=== PATIENT | male | born 1990 | race Two or more races ===

== ENCOUNTER 2025-03-28 03:41 | Emergency (ER) | payer MEDICAID, OTHER ==
[~2025-03-28] VITALS: Ht 180.3 cm; Wt 117.0 kg
[2025-03-28] MEDS ORDERED: LORA-622 PO (04:25)
[2025-03-28] MEDS ORDERED: PRED20TA2 PO (04:25)
--- NOTE | 2025-03-28 04:25 | ED.PDOC ---
History of Present Illness(SKN HPI Comments 35 year old male presents to ER with complaints of rash x 3 days. Patient states he developed a fine painful rash diffuse to body 3 days ago. Denies use of medications for current symptoms and presents to ER ambulatory on arrival, with steady gait, in no distress. Denies fever, body aches, chills, known allergies, use of new soaps/detergents/lotions, joint pain, penile discharge/exposure to STD or any further symptoms/complaints Chief Complaint: Rash Time Seen by MD: 03:48 Primary Care Provider: UNKNOWN History of Present Illness: Nurses Notes, Medications, Allergies Allergies: Coded Allergies: NO KNOWN ALLERGIES (Unverified , 03/28/25) Home Meds Active Scripts Loratadine (Claritin) 10 Mg Tab, 1 TAB PO DAILY PRN, #30 TAB 0 Refills Prov:RAFAEL DUNN 03/28/25 Prednisone (Prednisone) 20 Mg Tab, 20 MG PO BID for 5 Days, #10 TAB 0 Refills Prov:RAFAEL DUNN 03/28/25 Information Source: Patient Mode of Arrival: Ambulatory Past Medical History PAST MEDICAL HISTORY: Denies Surgical History: Denies all surgeries Family History Family History: Unknown Social History Smoker: Non-Smoker Alcohol: Denies ETOH Use Drugs: Denies Drug Use Lives In: Home Constitutional: denies: chills, diaphoresis, fatigue, fever, malaise, sweats, weakness, others EENTM: denies: blurred vision, double vision, ear bleeding, ear discharge, ear drainage, ear pain, ear ringing, eye pain, eye redness, hearing loss, mouth pain, mouth swelling, nasal discharge, nose bleeding, nose congestion, nose pain, photophobia, tearing, throat pain, throat swelling, voice changes, others Respiratory: denies: cough, hemoptysis, orthopnea, SOB at rest, shortness of breath, SOB with excertion, stridor, wheezing, others Cardiovascular: denies: chest pain, dizzy spells, diaphoresis, Dyspnea on exertion, edema, irregular heart beat, left arm pain, lightheadedness, palpitations, PND, syncope, others Gastrointestinal: denies: abdomen distended, abdominal pain, blood streaked bowels, constipated, diarrhea, dysphagia, difficulty swallowing, hematemesis, melena, nausea, poor appetite, poor fluid intake, rectal bleeding, rectal pain, vomiting, others Genitourinary: denies: burning, dysuria, flank pain, frequency, hematuria, i ncontinence, penile discharge, penile sore, pain, testicle pain, testicle swelling, urgency, others Neurological: denies: dizziness, fainting, headache, left sided numbness, left sided weakness, numbness, paresthesia, pre-existing deficit, right sided numbness, right sided weakness, seizure, speech problems, tingling, tremors, weakness, others Musculoskeletal: denies: back pain, gout, joint pain, joint swelling, muscle pain, muscle stiffness, neck pain, others Integumetry: reports: others (As stated in HPI) Allergic/Immunocompromised: reports: others (As stated in HPI) Hematologic/Lymphatic: denies: anemia, blood clots, easy bleeding, easy bruising, swollen glands, others Endocrine: denies: excessive hunger, excessive sweating, excessive thirst, excessive urination, flushing, intolerance to cold, intolerance to heat, unexplained weight gain, unexplained weight loss, others Psychiatric: denies: anxiety, bipolar disorder, depression, hopeless, panic disorder, schizophrenia, sleepless, suicidal, others Physical Exam General Appearance: No Apparent Distress, Obese HEENT: Normal ENT Inspection, PERRL/EOMI, Pharynx Normal, TMs Normal Neck: Full Range of Motion, Non-Tender, Normal Respiratory: Chest Non-Tender, Lungs Clear, No Accessory Muscle Use, No Respiratory Distress, Normal Breath Sounds Cardiovascular: No Murmur, No Gallop, Regular Rate/Rhythm Breast Exam: Deferred Gastrointestinal: NOT DONE Genitalia: Deferred Pelvic: Deferred Rectal: Deferred Extremities: Normal capillary refill, Normal range of motion Neurologic: Alert, No Motor Deficits, Normal Affect, Normal Mood, No Sensory Deficits Cerebellar Function: Normal Reflexes: Normal Skin: Dry, Normal Color (Fine, flesh-colored papular rash to bilateral arms and upper back noted without erythema/warmth or signs of infection appreciated), Warm Peripheral Pulses: 2+ Radial (R), 2+ Radial (L), 2+ Brachial (R), 2+ Brachial (L) Lymphatic: No Adenopathy Was a procedure done? Was a procedure done?: No Sedation Sedation?: No Differential Diagnosis (INTG) Differential Diagnosis: Drug Reaction, Scabies, Viral exanthema Differential Diagnosis: Cellulitis X-Ray, Labs, Meds, VS Vital Signs Date Time Temp Pulse Resp B/P (MAP) Pulse Ox O2 Delivery O2 Flow Rate FiO2 03/28/25 03:44 97.4 75 18 135/89 97 97.4 Solu-Medrol 125 mg IM ordered Advised to follow up with PCP in 1-2 days Patient verbalized understanding and agreeable with current plan of care Advised to return to ER immediately if symptoms worsen Time of 1ST Reevaluation: 04:04 Reevaluation 1ST: N/A Patient Education/Counseling: Diagnosis, Treatment, Prognosis, Need For Follow Up Family Education/Counseling: No Family Present SEPSIS Sepsis Screen Date sepsis recognized/suspect: Mar 28, 2025 Time Sepsis recognized/suspect: 345 Recent Procedure: No On Antibiotic Therapy: No Respiratory Rate >20: No Heart Rate >90: No Temp<36 C (96.8 F) or >38.3 C: No SBP <90 or MAP <65 mmHG: No New Acute Mental Status Change: No Is the patient on CPAP, BIPAP,: No Vital Signs Date Time Temp Pulse Resp B/P (MAP) Pulse Ox O2 Delivery O2 Flow Rate FiO2 03/28/25 03:44 97.4 75 18 135/89 97 97.4 Departure 1 Departure Time of Disposition: 04:20 Impression: Primary Impression: Contact dermatitis Qualified Codes: L25.9 - Unspecified contact dermatitis, unspecified cause Disposition: 01 HOME / SELF CARE / HOMELESS Condition: Stable e-Prescriptions Loratadine (Claritin) 10 Mg Tab 1 TAB PO DAILY PRN, #30 TAB 0 Refills Prov: RAFAEL DUNN 03/28/25 Prednisone (Prednisone) 20 Mg Tab 20 MG PO BID for 5 Days, #10 TAB 0 Refills Prov: RAFAEL DUNN 03/28/25 Discharged With: Self Critical Care Note Critical Care Time?: No Stability Stability form required: No Heart Score Heart Score: Heart Score Response (Comments) Value History N/A 0 EKG N/A 0 Age N/A 0 Risk Factors N/A 0 Troponin N/A 0 Total 0 RAFAEL DUNN Mar 28, 2025 04:25
[2025-03-28 05:03] VITALS: BP 136/96; PULSE 66; RESP 19; TEMP 98.1; O2SAT 96
[2025-03-28] MEDS: methylPREDNISolone SOD SUCC 125 MG/2 ML VL IM ONE (05:03)
== END 2025-03-28 05:06 | disposition home or self-care (01) ==
LOC: ER 03:41
DX: L25.9 Unspecified contact dermatitis, unspecified cause (principal); Z79.899 Other long term (current) drug therapy
CPT/HCPCS: 36415; 96372; 99283; J2919